=== PATIENT | female | born 1935 | race Caucasian/White ===

== ENCOUNTER 2021-09-02 23:36 | Inpatient (IN) | payer OTHER ==
[~2021-09-02] VITALS: Ht 167.6 cm; Wt 92.1 kg
[2021-09-03] MEDS ORDERED: ELIQUIS5 MG PO (02:07)
[2021-09-03] MEDS ORDERED: ISOSORBIDE MONO30 MG PO (02:08)
[2021-09-03] MEDS ORDERED: MECLIZINE HCL25 MG PO (02:08)
[2021-09-03] MEDS ORDERED: BETAPACE 80MG T80 MG PO (02:09)
[2021-09-03] MEDS ORDERED: AMLODIPINE BES2.5 MG PO (02:09)
[2021-09-03] MEDS ORDERED: LIPITOR TAB 2020 MG PO (02:09)
[2021-09-03] MEDS ORDERED: VISTARIL 25 MG25 MG PO (02:12)
[2021-09-03] MEDS ORDERED: VITAMIN D21250 MCG PO (02:14)
[2021-09-03] MEDS ORDERED: LASIX TAB 20 MG20 MG PO (02:14)
[2021-09-03 02:31] LABS: HEMOGLOBIN 13.4 gm/dl (12.3-15.3); RED BLOOD COUNT 4.55 M/UL (4.00-5.10); WHITE BLOOD COUNT 8.7 K/UL (4.5-11.0)
[2021-09-03 04:51] LABS: BUN/CREATININE RATIO 27 (0-10)
[2021-09-04 01:47] LABS: HEMOGLOBIN 12.4 gm/dl (12.3-15.3); RED BLOOD COUNT 4.18 M/UL (4.00-5.10); WHITE BLOOD COUNT 7.9 K/UL (4.5-11.0)
[2021-09-04 02:02] LABS: BUN/CREATININE RATIO 25 (0-10)
[2021-09-04] MEDS ORDERED: ZETIA10 MG PO (02:10)
[2021-09-04] MEDS ORDERED: PRESERVISION A1 EAC3 PO (10:16)
[2021-09-04] MEDS ORDERED: ASPIRIN EC81 MG PO (10:16)
[2021-09-04] MEDS ORDERED: COZAAR 50MG TAB50 MG PO (17:59)
[2021-09-04] MEDS ORDERED: BETAPACE 80MG T80 MG PO (17:59)
[2021-09-04] MEDS ORDERED: CLOPIDOGREL75 MG PO (17:59)
[2021-09-04] MEDS ORDERED: NITROGLYCERIN0.4 MG SL (17:59)
[2021-09-04] MEDS ORDERED: ATORVASTATIN CA20 MG PO (18:01)
[2021-09-04] MEDS ORDERED: LASIX20 MG PO (18:06)
[2021-09-04] MEDS ORDERED: DOXYCYCLINE HY100 M2 PO (18:06)
[2021-09-04] MEDS ORDERED: K-TAB ER20 MEQ PO (18:06)
[2021-09-04] MEDS ORDERED: K-TAB ER10 MEQ PO (18:23)
[2021-09-04] MEDS ORDERED: HYDROCHLOROTH12.5 MG PO (18:23)
== END 2021-09-04 19:00 | disposition home or self-care (01) | DRG 246 ==
LOC: PROG CARE 09-03 01:44
PROVIDERS: Internal Medicine Cardiovascular Disease; ADMIT Internal Medicine
PROC: B24BZZZ Ultrasonography of Heart with Aorta (ICD-10-PCS; principal; 2021-09-03)
PROC: 027034Z Dilation of Coronary Artery, One Artery with Drug-eluting Intraluminal Device, Percutaneous Approach (ICD-10-PCS; 2021-09-03)
PROC: 4A023N7 Measurement of Cardiac Sampling and Pressure, Left Heart, Percutaneous Approach (ICD-10-PCS; 2021-09-03)
PROC: B2111ZZ Fluoroscopy of Multiple Coronary Arteries using Low Osmolar Contrast (ICD-10-PCS; 2021-09-03)
DX: T82.855A Stenosis of coronary artery stent, initial encounter (principal); I21.A9 Other myocardial infarction type; I50.32 Chronic diastolic (congestive) heart failure; I44.7 Left bundle-branch block, unspecified; Z20.822 Contact with and (suspected) exposure to COVID-19; E78.5 Hyperlipidemia, unspecified; I25.5 Ischemic cardiomyopathy; I08.1 Rheumatic disorders of both mitral and tricuspid valves; I48.0 Paroxysmal atrial fibrillation; I11.0 Hypertensive heart disease with heart failure; J40 Bronchitis, not specified as acute or chronic; Z79.01 Long term (current) use of anticoagulants; Z95.5 Presence of coronary angioplasty implant and graft; Z85.3 Personal history of malignant neoplasm of breast; Z90.12 Acquired absence of left breast and nipple; Z99.81 Dependence on supplemental oxygen; Z82.49 Family history of ischemic heart disease and other diseases of the circulatory system; Z90.49 Acquired absence of other specified parts of digestive tract; Z88.1 Allergy status to other antibiotic agents; Z88.5 Allergy status to narcotic agent; Z88.0 Allergy status to penicillin; Z88.8 Allergy status to other drugs, medicaments and biological substances
CPT/HCPCS: ECHO; 36415; 71045; 71046; 80048; 80053; 80061; 82550; 82553; 83036; 83605; 83735; 83880; 84100; 84439; 84443; 84484; 84550; 85025; 85347; 85610; 85730; 86140; 93005; 93306; 99152; 99153; C1725; C1769; C1874; C1887; C1894; C9600; J1644; J2250; J3010; J7040; Q9967

== ENCOUNTER → 2021-11-14 | Outpatient (CLI) | payer OTHER ==
[~2021-11-14] MED LIST: AMLODIPINE BES2.5 MG PO; ASPIRIN EC81 MG PO; ATORVASTATIN CA20 MG PO; BETAPACE 80MG T80 MG PO; CLOPIDOGREL75 MG PO; COZAAR 50MG TAB50 MG PO; DOXYCYCLINE HY100 M2 PO; ELIQUIS5 MG PO; HYDROCHLOROTH12.5 MG PO; ISOSORBIDE MONO30 MG PO; K-TAB ER10 MEQ PO; K-TAB ER20 MEQ PO; LASIX TAB 20 MG20 MG PO; LASIX20 MG PO; LIPITOR TAB 2020 MG PO; MECLIZINE HCL25 MG PO; NITROGLYCERIN0.4 MG SL; PRESERVISION A1 EAC3 PO; VISTARIL 25 MG25 MG PO; VITAMIN D21250 MCG PO; ZETIA10 MG PO
== END ==
LOC: EXRD 09:52
DX: R55 Syncope and collapse (principal); I65.23 Occlusion and stenosis of bilateral carotid arteries
CPT/HCPCS: 93880